=== PATIENT | female | born 1955 | race Caucasian/White ===

== ENCOUNTER 2016-06-17 14:05 | Outpatient (CLI) | payer OTHER ==
--- NOTE | 2016-06-17 15:39 | DIAGNOSTIC IMAGING REPORT ---
PROCEDURE: CT ABDOMEN/PELVIS W/O CONTRAST INDICATION: ASITES; ELEVATED LFT'S TECHNIQUE: Noncontrast axial images were obtained of the entire abdomen and pelvis with sagittal and coronal reformations. COMPARISON: Report from CT abdomen/pelvis 06/17/2005 FINDINGS: ABDOMEN: Lung base are clear. Normal heart size. Liver contour irregularity, mild ascites, recanalized umbilical vein and mild splenomegaly (13.5 cm). Several small gallstones. Calcified splenic granulomas. Pancreas, adrenal glands and kidneys are normal. Moderate atherosclerosis. There is fluid in the ascending colon with some wall thickening. Mild infiltration of the mesentery. PELVIS: Appendix not visualized but no evidence of acute appendicitis. Mild sigmoid diverticulosis. Normal uterus and adnexa. Mild free fluid. Moderate degenerative changes of the spine. IMPRESSION: 1. Findings consistent with cirrhosis with mild splenomegaly, mild ascites and recanalized umbilical vein. 2. Cholelithiasis 3. Fluid in the ascending colon suggestive of enterocolitis. Ascending colon wall thickening may be the result of low protein state versus colitis. 4. Old granulomatous disease 5. Mild sigmoid diverticulosis 6. Results discussed with Sarah Dudley All CT scans at this facility use dose modulation, iterative reconstruction, and/or weight-based dosing when appropriate to reduce radiation dose to as low as reasonably achievable.
== END 2016-06-17 23:00 ==
LOC: CT SRH 14:05
DX: R18.8 Other ascites (principal); K80.20 Calculus of gallbladder without cholecystitis without obstruction; K57.30 Diverticulosis of large intestine without perforation or abscess without bleeding

== ENCOUNTER 2016-08-06 15:00 | Outpatient (CLI) | payer OTHER ==
--- NOTE | 2016-08-06 17:14 | DIAGNOSTIC IMAGING REPORT ---
PROCEDURE: US PARACENTESIS INDICATION: Ascites. Distention. EtOH use. Cirrhosis. COMPARISON: Compared CT abdomen and pelvis on 06/17/2016. TECHNIQUE: Informed consent was obtained and the patient was advised of the usual risks and complications including infection, bleeding and allergy. Supine position. PROCEDURE/FINDINGS: Following sterile preparation and 1% lidocaine local anesthetic, ultrasound guidance was utilized to place a 16-gauge angiocatheter in right lateral abdomen. 2550 ml of lele fluid was aspirated. No laboratory studies were obtained (as requested). The patient tolerated the procedure well and was discharged home to the care of her , in satisfactory condition with instructions to call for any untoward symptoms. IMPRESSION: 1. Successful ultrasound-guided therapeutic paracentesis (2550 ml fluid).
== END 2016-08-06 23:00 ==
LOC: US SRH 15:00
PROC: 0W9G3ZX Drainage of Peritoneal Cavity, Percutaneous Approach, Diagnostic (ICD-10-PCS; principal; 2016-08-06)
PROC: BW40ZZZ Ultrasonography of Abdomen (ICD-10-PCS; principal; 2016-08-06)
DX: R18.8 Other ascites (principal)
CPT/HCPCS: 82445

== ENCOUNTER 2016-08-27 14:44 | Outpatient (CLI) | payer OTHER ==
--- NOTE | 2016-08-27 15:54 | DIAGNOSTIC IMAGING REPORT ---
PROCEDURE: XR CHEST 2 VIEW INDICATION: Fall. Sternal pain. TECHNIQUE: PA and lateral views. COMPARISON: None. FINDINGS: The mildly impacted and minimally displaced transverse fracture of the mid sternum. The rest of the thorax is normal (mild degenerative change of the thoracic spine. Lungs are clear. Heart and mediastinum are normal. IMPRESSION: 1. Mildly impacted minimally displaced fracture of the mid sternum. 2. Otherwise negative chest. 3. Findings discussed with the patient and called to MANI Richardson.
--- NOTE | 2016-08-27 16:16 | DIAGNOSTIC IMAGING REPORT ---
PROCEDURE: US PARACENTESIS INDICATION: Recurrent ascites. Distention. COMPARISON: Comparison is made to ultrasound thoracentesis on 08/06/2016. TECHNIQUE: Informed consent was obtained and the patient was advised of the usual risks and complications including infection, bleeding and allergy. Supine position. PROCEDURE/FINDINGS: Following sterile preparation and 1% lidocaine local anesthetic, ultrasound guidance was utilized to place a 16-gauge angiocatheter in right upper outer abdomen. 1200 ml of dark lele fluid was aspirated. The patient tolerated the procedure reasonably well and was discharged home to the care of her , in satisfactory condition, with instructions to call for any untoward symptoms. IMPRESSION: 1. Successful ultrasound-guided therapeutic paracentesis (1200 ml fluid).
== END 2016-08-27 23:00 ==
LOC: US SRH 14:44
PROC: 0W9G3ZZ Drainage of Peritoneal Cavity, Percutaneous Approach (ICD-10-PCS; principal; 2016-08-27)
PROC: BW40ZZZ Ultrasonography of Abdomen (ICD-10-PCS; principal; 2016-08-27)
DX: S22.20XA Unspecified fracture of sternum, initial encounter for closed fracture (principal); R18.8 Other ascites
CPT/HCPCS: 82445; 83704